=== PATIENT | female | born 1945 | race Caucasian/White ===

== ENCOUNTER → 2017-05-09 | Outpatient (CLI) | payer OTHER | LOC: FIMAGING 10:44 | PROVIDERS: ATTEND Family Medicine | DX: Z12.31 Encounter for screening mammogram for malignant neoplasm of breast (principal) | CPT/HCPCS: G0202 ==

== ENCOUNTER → 2017-07-25 | Outpatient (CLI) | payer OTHER ==
[~2017-07-25] MED LIST: IOPAMIDOL (ISOVUE-300) 100 ML BTL ONE
== END ==
LOC: CIMAGING 11:08
PROVIDERS: ATTEND Nurse Practitioner Family
DX: J98.6 Disorders of diaphragm (principal); R91.1 Solitary pulmonary nodule; K86.2 Cyst of pancreas; K57.90 Diverticulosis of intestine, part unspecified, without perforation or abscess without bleeding; I86.2 Pelvic varices
CPT/HCPCS: 71260; 74177; Q9967

== ENCOUNTER 2018-02-16 07:29 | Inpatient (IN) | payer OTHER ==
--- NOTE | 2018-02-16 08:00 | EDPHY ---
H & P Stated Complaint: abdominal cramps yesterday, bloody diarrhea this morning Time Seen by Provider: 02/16/18 07:59 HPI/ROS: Chief Complaint: Bloody diarrhea HPI: 72-year-old woman who is presenting with bloody diarrhea this morning. Patient states she has been having episodes of diarrhea for the last couple weeks. She was seen at urgent care and by her primary care physician who started her on some medication for this, she does not recall. She says that up until the end of last week her diarrhea had improved. Yesterday she had a lot of abdominal cramping and gas but did not passing stool. This morning she had 1 episode of loose stool with blood in it. It was not all blood. She is not having abdominal pain. She is having some nausea. No lightheadedness or fainting. No fevers or chills. She only had a single episode today. She denies any blood thinning medications. She does have a history of internal hemorrhoids. No rectal pain or blood in the toilet tissue before this morning recently. ROS: 10 systems were reviewed and were negative except those elements noted in the HPI. PMH: Tachy-cesar syndrome, on metoprolol per Cardiology Social History: No smoking, no alcohol, no recreational drug use Family History: non-contributory Physical Exam: Gen: Awake, Alert, No Distress HEENT: Nose: no rhinorrhea Eyes: PERRLA, EOMI Mouth: Dry mucosa Neck: Supple, no JVD Chest: nontender, lungs clear to auscultation Heart: S1, S2 normal, no murmur Abd: Soft, moderate generalized tenderness, no guarding Back: no CVA tenderness, no midline tenderness Ext: no edema, non-tender Skin: no rash Neuro: CN II-XII intact, Sensation grossly intact, Strength 5/5 in bilateral upper and lower extremities - Medical/Surgical History Hx Asthma: No Hx Chronic Respiratory Disease: No Hx Diabetes: No Hx Cardiac Disease: Yes Hx Renal Disease: No Hx Cirrhosis: No Hx Alcoholism: No Hx HIV/AIDS: No Hx Splenectomy or Spleen Trauma: No Other PMH: HTN - Social History Smoking Status: Never smoked Constitutional: Initial Vital Signs Temperature (C) 36.6 C 02/16/18 07:36 Heart Rate 122 H 02/16/18 07:36 Respiratory Rate 18 02/16/18 07:36 Blood Pressure 107/74 02/16/18 07:36 O2 Sat (%) 94 02/16/18 07:36 O2 Delivery Mode Room Air Allergies/Adverse Reactions: Penicillins Allergy (Verified 02/16/18 07:35) Sulfa (Sulfonamide Antibiotics) Allergy (Verified 02/16/18 07:35) thimerosal Allergy (Verified 02/16/18 07:35) Home Medications: Medication Instructions Recorded HCTZ (*) 02/16/18 Lipitor 02/16/18 Metoprolol Oral Susp (*) 02/16/18 Potassium Chloride 02/16/18 Medical Decision Making - Diagnostics Imaging Results: Imaging Impressions Abdomen CT 02/16/18 08:20 Impression: 1. Suspect mild generalized low-grade colitis, likely infectious or inflammatory. There is no atherosclerotic occlusive disease or mesenteric thrombosis observed. 2. 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 This should be imaged with contrast enhanced MRI, with monitoring through age 79, according to current ACR guidelines 3. Chronically elevated left hemidiaphragm similar to 07/25/2017 with stable distribution of noncalcified pulmonary nodules as above detailed. 4. Sequela of old granulomatous disease. 5. Pelvic venous congestion. 6. Uterine leiomyomata, with potential endometrial thickening and some mucosal fibroid versus tiny endometrial polypoid structure, similar to 07/25/2017. If there is further clinical concern, dedicated pelvic sonography could be considered. 6. Bilateral renal cortical cysts, similar to the previous exam. Findings were discussed with Edvin Villaseñor MD at 9:54, on 02/16/2018. A Follow-Up Required test result has been communicated via the [employer] Critical Result system on 02/16/2018 9:55, Message ID [id number]. ED Course/Re-evaluation: Potassium noted. I have ordered IV replacement. Awaiting CT scan results. Patient does have a leukocytosis but a normal H&H. CT scan results noted. Low-grade colitis. Patient is clinically dehydrated and hypokalemic. She has had some nausea not tolerating fluids. Plan will be for admission for hydration, potassium replacement. She will need follow-up as an outpatient for her pancreatic cyst and endometrial thickening. I have paged the hospitalist. - Data Points Laboratory Results: Laboratory Results 02/16/18 07:55 02/16/18 07:55 02/16/18 02/16/18 07:55 07:55 WBC 16.69 10^3/uL H 10^3/uL (3.80-9.50) RBC 5.63 10^6/uL H 10^6/uL (4.18-5.33) Hgb 16.3 g/dL g/dL (12.6-16.3) Hct 48.0 % H % (38.0-47.0) MCV 85.3 fL fL (81.5-99.8) MCH 29.0 pg pg (27.9-34.1) MCHC 34.0 g/dL g/dL (32.4-36.7) RDW 13.8 % % (11.5-15.2) Plt Count 226 10^3/uL 10^3/uL (150-400) MPV 11.4 fL fL (8.7-11.7) Neut % (Auto) Not Reported Lymph % (Auto) Not Reported [place] % (Auto) Not Reported Eos % (Auto) Not Reported Baso % (Auto) Not Reported Nucleat RBC Rel Count Not Reported Absolute Neuts (auto) Not Reported Absolute Lymphs (auto) Not Reported Absolute Monos (auto) Not Reported Absolute Eos (auto) Not Reported Absolute Basos (auto) Not Reported Absolute Nucleated RBC Not Reported Immature Gran % Not Reported Seg Neutrophils % 75.0 % % Band Neutrophils % 0.0 % % Lymphocytes % 5.0 % % Monocytes % 19.0 % % Eosinophils % 0.0 % % Basophils % 1.0 % % Metamyelocytes % 0.0 % % Myelocytes % 0.0 % % Promyelocytes % 0.0 % % Blast Cells % 0.0 % % Immature Gran # Not Reported Absolute Seg Neuts 12.52 10^/uL H 10^/uL (1.70-6.50) Absolute Band Neuts 0.00 10^3/uL 10^3/uL (0.00-0.70) Absolute Lymphocytes 0.83 10^3/uL L 10^3/uL (1.00-3.00) Absolute Monocytes 3.17 10^3/uL H 10^3/uL (0.30-0.80) Absolute Eosinophils 0.00 10^3/uL L 10^3/uL (0.03-0.40) Absolute Basophils 0.17 10^3/uL H 10^3/uL (0.02-0.10) Absolute Metamyelocyte 0.00 10^3/mL 10^3/mL (0.00-0.00) Absolute Myelocytes 0.00 10^3/mL 10^3/mL (0.00-0.00) Absolute Promyelocytes 0.00 10^3/uL 10^3/uL (0.00-0.00) Absolute Plasma Cells 0.00 10^3/uL 10^3/uL (0.00-0.00) Nucleated RBCs 0 /100 WBC /100 WBC (0-0) Absolute Blast Cells 0.00 10^3/uL 10^3/uL (0.00-0.00) Plasma Cells % 0.0 % % Platelet Estimate ADEQUATE (ADEQ) Microcytic Cells 1+ H Echinocytes 1+ H Sodium 134 mEq/L L mEq/L (135-145) Potassium 2.7 mEq/L L* mEq/L (3.3-5.0) Chloride 87 mEq/L L mEq/L (97-110) Carbon Dioxide 31 mEq/l mEq/l (22-31) Anion Gap 16 mEq/L mEq/L (8-16) BUN 12 mg/dL mg/dL (7-23) Creatinine 0.7 mg/dL mg/dL (0.6-1.0) Estimated GFR > 60 Glucose 132 mg/dL H mg/dL (70-100) Calcium 9.7 mg/dL mg/dL (8.5-10.4) Total Bilirubin 1.2 mg/dL mg/dL (0.1-1.4) AST 26 IU/L IU/L (14-46) ALT 38 IU/L IU/L (9-52) Alkaline Phosphatase 182 IU/L H IU/L (38-126) Total Protein 6.4 g/dL g/dL (6.3-8.2) Albumin 3.5 g/dL g/dL (3.5-5.0) Medications Given: Potassium Chloride (Potassium Cl 20 Meq (Premix)) 100 mls @ 50 mls/hr IV EDNOW ONE Stop: 02/16/18 10:40 Last Admin: 02/16/18 09:12 Dose: Not Given Discontinued Medications Sodium Chloride (Ns) 1,000 mls @ 0 mls/hr IV ONCE ONE; Wide Open PRN Reason: Protocol Stop: 02/16/18 08:20 Last Admin: 02/16/18 08:25 Dose: 1,000 mls Potassium Chloride (Potassium Cl 10 Meq (Premix)) 100 mls @ 100 mls/hr IV EDNOW ONE Stop: 02/16/18 10:06 Last Admin: 02/16/18 09:09 Dose: 100 mls Potassium Chloride (Potassium Cl 10 Meq (Premix)) 50 mls @ 50 mls/hr IV EDNOW ONE Stop: 02/16/18 10:06 Last Admin: 02/16/18 10:13 Dose: 50 mls Metoprolol Succinate (Toprol Xl) 25 mg PO EDNOW ONE Stop: 02/16/18 08:21 Last Admin: 02/16/18 08:31 Dose: 25 mg Departure - Departure Disposition: [facility] Acute Clinical Impression: Colitis, Dehydration, Hypokalemia Condition: Fair Referrals: Shanta Anderson MD [Primary Care Provider] - As per Instructions Stand Alone Forms: Statement of Treatment
[2018-02-16] MEDS ORDERED: NS 1,000 ML IV ONE (08:19)
[2018-02-16] MEDS ORDERED: METOPROLOL SUCCINATE XR 25 MG TAB PO ONE (08:20)
[2018-02-16 08:28] LABS: PLATELET COUNT 226 10^3/uL (150-400)
[2018-02-16] MEDS ORDERED: IOPAMIDOL (ISOVUE-300) 100 ML BTL ONE (08:41)
[2018-02-16] MEDS ORDERED: POTASSIUM Cl (KCl) 100 ML IV ONE ×2 (08:41→09:07)
[2018-02-16] MEDS ORDERED: POTASSIUM Cl (KCl) 10 MEQ/100 ML BAG IV ONE (08:48)
[2018-02-16] MEDS ORDERED: POTASSIUM Cl (KCl) 50 ML IV ONE (09:07)
[2018-02-16] MEDS ORDERED: PROTOCOL POTASSIUM 1 DOSE MISC PRN (11:08)
[2018-02-16] MEDS ORDERED: ACETAMINOPHEN 325 MG TAB PO PRN (11:42)
[2018-02-16] MEDS ORDERED: ONDANSETRON 4 MG/2 ML VIAL IVP PRN (11:42)
[2018-02-16] MEDS ORDERED: ONDANSETRON DISINTEGRATING 4 MG TAB PO PRN (11:42)
[2018-02-16] MEDS ORDERED: D5W 1/2 NS W/ 20 KCl/L 1,000 ML IV SCH (11:45)
--- NOTE | 2018-02-16 13:24 | ASMTCMCOM ---
CM Note CM Note Notes: Patient admitted via ED for c/o abdominal pain and bloody diarrhea. She reports a couple of weeks of loose stools. Plan of care TBD. Plan: TBD Date Signed: 02/16/2018 01:24 PM Electronically Signed By:Berta Rodriguez RN
--- NOTE | 2018-02-16 13:52 | GHP ---
DATE OF ADMISSION: 02/16/2018 HISTORY OF PRESENT ILLNESS: The patient is 72-year-old female with history of tachy-cesar syndrome. She has had diarrhea since January 31. She has had some nausea, really not much vomiting, but pers istent diarrhea. She has lost weight. She is spending a lot of her time in bed. She had a GI panel on the with no organism detected. She drinks city water, bottled water. She has not traveled. There are no new medications. No one around her has been sick. She lives at home with just her hus band. She has no pets. This morning, she saw some bright red blood in her stool and elected to come to the hospital. REVIEW OF SYSTEMS: Complete 10-point review of systems conducted, negative, except as noted in the H PI. PAST MEDICAL HISTORY: Tachy-cesar syndrome, pulmonary nodule. ALLERGIES: Penicillin, sulfa, thimerosal. MEDICATIONS: Metoprolol. SOCIAL HISTORY: She lives in [place]. No alcohol. No tobacco. FAMILY HISTORY: Reviewed and unremarkable. PHYSICAL EXAM: VITAL SIGNS: Temp 36.6, blood pressure 107/ , pulse 122 range has been 92 t o 150, breathing 18 times a minute, 94% on room air. GENERAL: In no acute distress, lying flat. HE ENT: Sclerae anicteric. Oropharynx clear. Mucous membranes moist. NECK: Supple. No lymphadenopa thy or JVD. LUNGS: Clear to auscultation bilaterally. HEART: S1, S2. Not tachycardic when I see her. ABDOMEN: Soft, nontender. No rebound or guarding. Bowel sounds are hypoactive, but present. LOWER EXTREMITIES: Without edema. Calves are nontender. SKIN: Without rash. NEUROLOGIC: Nonfoc al. LABORATORY/IMAGING: Sodium 134, potassium 2.7, chloride 87, bicarb 31, BUN 12, creatinine 0.7, gluco se 132. LFTs are normal other than a slightly elevated alkaline phosphatase. White count 16.7, mary ann tocrit 48, which is greater than her baseline, platelets 226,000. CT abdomen images reviewed, interpreted by me shows a largely jay colitis. No atherosclerotic occlus marybeth disease. She has a 1 x 3 x 1.1 x 3 cm cyst in the common bile duct in the pancreatic head. Stab le pulmonary nodules. Pelvic venous congestion, uterine leiomyomata, bilateral renal cortical cysts. I discussed the case with Dr. Jose Maria Villaseñor. Her EKG shows sinus tach at 145 with normal axis and intervals, and no ST or T-wave changes. ASSESSMENT/PLAN: A 72-year-old female with prolonged diarrhea and hypokalemia. 1. Diarrhea: Certainly, this is a long course of a viral or infectious colitis. I will repeat her gastrointestinal GI panel. She actually had two of them sent on the in the . The one on the was not run. The patient has a benign exam without evidence of acute intestinal ischemia. We will follow. If her gastrointestinal panel is negative, I think it is reasonable to discuss with [facility] about the possibility of a colonoscopy. 2. Hypokalemia: This is from losses in her stool. We will put her on a potassium protocol and pota ssium-containing intravenous fluid. 3. Uterine leiomyomata: Continue gynecologic followup. 4. Tachy-cesar: This is stable for her. We will continue her beta leah. 5. Prophylaxis: Sequential compression devices. DISPOSITION: Observation status. /[id number]/MODL
--- NOTE | 2018-02-16 14:21 | CPEKG ---
Test Reason : OPEN Blood Pressure : / mmHG Vent. Rate : 145 BPM Atrial Rate : 146 BPM P-R Int : 129 ms QRS Dur : 085 ms QT Int : 319 ms P-R-T Axes : 003 035 211 degrees QTc Int : 496 ms Sinus tachycardia Atrial premature complex Probable LVH with secondary repol abnrm Anterior Q waves, possibly due to LVH Confirmed by Edvin Villaseñor ([id number]) on 02/16/2018 2:20:47 PM Referred By: Confirmed By:Edvin Villaseñor
[2018-02-16] MEDS ORDERED: PEG 3350/NA SULF,BICARB,CL/KCL (GAVILYTE-G) 4000 ML BTL PO ONE (18:15)
[2018-02-16] MEDS ORDERED: POTASSIUM CL 10 MEQ TAB PO ONE (19:39)
[2018-02-16] MEDS ORDERED: POTASSIUM CL 20 MEQ/15 ML UDCUP PO ONE (20:00)
[2018-02-16] MEDS: METOPROLOL TARTRATE 25 MG TAB PO SCH (20:10)
[2018-02-16] MEDS ORDERED: POTASSIUM CL 20 MEQ/15 ML UDCUP ONE (20:12)
[2018-02-17 04:34] LABS: PLATELET COUNT 180 10^3/uL (150-400)
[2018-02-17] MEDS ORDERED: POTASSIUM CL 20 MEQ TAB PO ONE (05:45)
[2018-02-17] MEDS ORDERED: POTASSIUM CL 20 MEQ/15 ML UDCUP PO ONE ×3 (06:45→21:30)
[2018-02-17] MEDS: METOPROLOL TARTRATE 25 MG TAB PO SCH ×2 (08:08→20:43)
--- NOTE | 2018-02-17 09:11 | HOSPPROG ---
Hospitalist Progress Note Assessment/Plan: 72 yo F w refractory diarrhea diarrhea: micro neg X 2 blood yesterday imaging not suggestive of atherosclerosis, although not a dedicated CTA recently took ixekizumab for plaque psorias w subsequent thrush no rash/arthritis to suggest IBD colonoscopy today tachy cesar: tachy today continue BB hypokalemia: improving continue protocol proph: scd'd dispo: pending colonoscopy 3 Subjective: case d/w dr norris. s/p colon prep Objective: Vital Signs Temp Pulse Resp BP Pulse Ox 36.4 C 99 16 126/86 H 93 02/17/18 04:00 02/17/18 04:00 02/17/18 04:00 02/17/18 04:00 02/17/18 04:00 Microbiology 02/16/18 13:15 Gastrointestinal Tract Panel (PCR) - Final Stool No Organism Detected Laboratory Results 02/17/18 03:04 02/17/18 03:04 02/16/18 02/17/18 02/18/18 05:59 05:59 05:59 Intake Total 5246 100 Balance 5246 100 - Physical Exam Constitutional: no apparent distress, appears nourished Eyes: PERRL, anicteric sclera Ears, Nose, Mouth, Throat: moist mucous membranes, hearing normal Cardiovascular: regular rate and rhythym, no murmur, rub, or gallop Respiratory: no respiratory distress, no rales or rhonchi Gastrointestinal: normoactive bowel sounds, soft, non-tender abdomen, No guarding, No rebound Genitourinary: no bladder fullness, No patterson in urethra Skin: warm, normal color Musculoskeletal: full muscle strength, no muscle tenderness Neurologic: AAOx3 Psychiatric: interacting appropriately ICD10 Worksheet Patient Problems: Problems Problem Status Onset Colitis Acute Dehydration Acute Hypokalemia Acute
[2018-02-17] MEDS ORDERED: LR 1,000 ML IV ONE (10:11)
--- NOTE | 2018-02-17 11:07 | PDANEPAE ---
ANE Past Medical History - Cardiovascular History Hx Hypertension: Yes - Pulmonary History Hx Oxygen in Use at Home: No Hx Sleep Apnea: No Sleep Apnea Screening Result - Last Documented: Negative - Endocrine History Hx Diabetes: No - Chronic Pain History Chronic Pain: No ANE Review of Systems Review of Systems: ANE Patient History - Allergies Allergies/Adverse Reactions: Penicillins Allergy (Verified 02/16/18 10:45) Rash Sulfa (Sulfonamide Antibiotics) Allergy (Verified 02/16/18 10:45) Rash thimerosal Allergy (Verified 02/16/18 10:45) Rash - Home Medications Home Medications: Metoprolol Tartrate [Lopressor 25 mg (*)] 25 mg PO BID 02/16/18 [Last Taken ] - NPO status NPO Since - Liquids (Date): 02/17/18 NPO Since - Liquids (Time): 00:00 NPO Since - Solids (Date): 02/17/18 NPO Since - Solids (Time): 00:00 - Anes Hx Anes Hx: no prior problems - Smoking Hx Smoking Status: Never smoked ANE Labs/Vital Signs - Labs Result Diagrams: 02/17/18 03:04 02/17/18 03:04 - Vital Signs Blood Pressure: 124/86 Heart Rate: 138 Respiratory Rate: 20 O2 Sat (%): 92 Height: 167.64 cm Weight: 80.9 kg ANE Physical Exam - Airway Mallampati Score: Class 2 - ASA Status ASA Status: II ANE Anesthesia Plan Total IV Anesthesia: Yes
[2018-02-17] MEDS ORDERED: PROPOFOL/EMULSION 500 MG/50 ML BOTTLE IV ONE (11:40)
[2018-02-17] MEDS ORDERED: NALOXONE HCL 0.4 MG/ML INJ IVP PRN (12:06)
[2018-02-17] MEDS ORDERED: ONDANSETRON 4 MG/2 ML VIAL IVP PRN (12:06)
[2018-02-17] MEDS ORDERED: fentaNYL 100 MCG/2 ML INJ IVP PRN (12:06)
[2018-02-17] MEDS ORDERED: LR 500 ML IV PRN (12:06)
--- NOTE | 2018-02-17 12:07 | POSTANESTH ---
Post Anesthetic Evaluation Cardiovascular Status: Similar to Pre-Op Cond Respiratory Status: Normal, Stable Level of Consciousness/Mental Status: Can Participate in Eval Pain Control: Adequate, Prn Tx Ordered Nausea/Vomiting Control: Adequate, Prn Tx Ordered Complications Possibly Related to Anesthesia: None Noted
--- NOTE | 2018-02-17 12:15 | GIREPORT ---
[facility] - Endoscopy Department Patient Name: Lori Macias Procedure Date: 02/17/2018 10:56 AM Patient Type: Inpatient Attending MD/ ER Physician: Dominic Garcia MD Procedure: Colonoscopy Indications: Clinically significant diarrhea of unexplained origin, Hematochezia, Abnormal CT of the GI tract Providers: Dominic Garcia MD Medicines: Propofol per Anesthesia Complications: No immediate complications. Description of Procedure: After obtaining informed consent, the scope was passed under direct vis ion. Throughout the procedure, the patient's blood pressure, pulse, and oxyg en saturations were monitored continuously. The Colonoscope with irrigatio n channel was introduced through the anus and advanced to the cecum, identified by appendiceal orifice and ileocecal valve. The colonoscopy was performed without difficulty. The patient tolerated the procedure well. The quality of the bowel preparation was good. The appendiceal orifice and the rectum were photographed. Findings: A diffuse area of severely congested, erythematous and ulcerated mucosa was found in the entire colon. Biopsies were taken with a cold forceps for histology. Random right and left colon biopsies obtained. Estimated Blood Loss: Estimated blood loss: none. Post Op Diagnosis: - Congested, erythematous and ulcerated mucosa in the entire examined c olon. Biopsied. - Pancolitis. C/W IBD. Inflammation was found. This was severe. -Taltz has been associated with causing IBD (UC/Crohns) Recommendation: - Low fiber diet. - Await pathology results. - Pending path and clincial course would recommend IV Solumdrol 40 q 12 hours. Also oral mesalamine, Lialda 1. gram tabs, 4 tabs Daily. - Discontinue Taltz - Thank you for allowing me to participate in the care of your patient. Attending Participation: I personally performed the entire procedure. Dominic Garcia MD Dominic Garcia MD 02/17/2018 12:14:36 PM This report has been signed electronicallyStkendell Garcia MD Number of Addenda: 0 Note Initiated On: 02/17/2018 10:56 AM Total Procedure Duration Time 0 hours 9 minutes 35 seconds [email or web address]
--- NOTE | 2018-02-17 12:36 | GCON ---
REFERRING PHYSICIAN: Austin Hutton MD CHIEF COMPLAINT: Colitis. HISTORY OF PRESENT ILLNESS: This is a very pleasant, 72-year-old woman I was asked to see in consult ation by Dr. Hutton for symptoms of diarrhea and hematochezia with colitis on CT scan. The patient h as had diarrhea symptoms since January. She had some associated nausea without vomiting, persistent d iarrhea with some weight loss. She had stool studies for enteric pathogens, which were negative. Ramos urbina does have a history of psoriasis and has been on biologics for her psoriasis, Taltz. This did caus e an episode of thrush, for which she took oral antifungal medications. She presented to the [facility] with diarrhea and bright red blood per rectum. She had a CT scan that showed pancolitis. She has no prior history of inflammatory bowel disease. She has had previous colonoscopy about 10 years ago for routine colorectal screening. No family history of colon cancer or colon polyps. PAST MEDICAL HISTORY: Remarkable for tachy-cesar syndrome and a pulmonary nodule, history of psorias is. ALLERGIES: Penicillin, sulfa, thimerosal. MEDICATIONS: Metoprolol and Taltz. SOCIAL HISTORY: Lives in [place]. Nonsmoker, nondrinker, FAMILY HISTORY: Negative, as it pertains to chief complaint. REVIEW OF SYSTEMS: Negative for 10 systems, other than mentioned in History of Present Illness. PHYSICAL EXAM: VITAL SIGNS: 124/86, heart rate of 138, respiratory rate 20, 92% sat. GENERAL: A ve ry pleasant woman in no acute distress. HEENT: Normocephalic, atraumatic. EOMI. Neck is supple. No cervical adenopathy. Mucous membranes moist. LUNGS: Clear to auscultation. CARDIAC: Normal S1 , S2 without murmur. ABDOMEN: Benign, soft, nontender. No hepatosplenomegaly. EXTREMITIES: Witho ut clubbing, cyanosis, edema. NEURO: Nonfocal. SKIN: Warm, dry, intact. PSYCH: Alert and orient ated x3 with normal affect. LABORATORY DATA: White count of 10.82, hemoglobin 13.8, hematocrit 41.1, platelets of 180,000. Seru m chemistry is 136, potassium 3.0, chloride 95, BUN of 6, creatinine 0.6. CT scan: Episode of pancolitis. Stable-appearing 1.3 x 1.0 x 1.3 cyst off the caudal margin of the pancreatic head. Radiology recommended contrast-enhanced MRI and followup. IMPRESSION: A 72-year-old woman with psoriasis on biologics, Taltz (ixekizumab). Taltz has been ass ociated with causing inflammatory bowel disease, Crohn's, ulcerative colitis, or exacerbating known u lcerative colitis or Crohn disease. RECOMMENDATIONS: IV hydration. Clear liquids. Prep for colonoscopy. Proceed with diagnostic colon oscopy. We will follow with you. /[id number]/MODL
[2018-02-17] MEDS: PANTOPRAZOLE SODIUM 40 MG VIAL IVP SCH ×2 (15:59→20:53)
[2018-02-17] MEDS: methylPREDNISolone SOD SUCC 40 MG/ML VIAL IVP SCH ×2 (15:59→20:53)
[2018-02-17] MEDS ORDERED: POTASSIUM CL 10 MEQ TAB PO ONE (21:03)
[2018-02-18] MEDS: methylPREDNISolone SOD SUCC 40 MG/ML VIAL IVP SCH ×2 (03:36→08:54)
[2018-02-18 08:05] VITALS: BP 125/87
[2018-02-18] MEDS ORDERED: POTASSIUM CL 10 MEQ TAB PO ONE (08:51)
[2018-02-18] MEDS: PANTOPRAZOLE SODIUM 40 MG VIAL IVP SCH (08:57)
[2018-02-18] MEDS ORDERED: POTASSIUM CL 20 MEQ/15 ML UDCUP PO ONE (09:00)
[2018-02-18] MEDS: METOPROLOL TARTRATE 25 MG TAB PO SCH (09:04)
--- NOTE | 2018-02-18 10:07 | HOSPPROG ---
Hospitalist Progress Note Assessment/Plan: 72 yo F w refractory diarrhea diarrhea: micro neg X 2 blood yesterday imaging not suggestive of atherosclerosis, although not a dedicated CTA recently took ixekizumab for plaque psorias w subsequent thrush no rash/arthritis to suggest IBD colonoscopy revealed colitis ixekizumab a/w colitis dc this two weeks pred tachy cesar: tachy today continue BB hypokalemia: improving continue protocol proph: scd'd dispo: home today; > 30 minutes Subjective: feels better. eating Objective: Vital Signs Temp Pulse Resp BP Pulse Ox 36.7 C 133 H 18 125/87 H 92 02/18/18 08:00 02/18/18 09:04 02/18/18 08:00 02/18/18 08:00 02/18/18 08:00 Laboratory Results 02/17/18 03:04 02/18/18 03:40 02/17/18 02/18/18 02/19/18 05:59 05:59 05:59 Intake Total 5246 675 Output Total 0 Balance 5246 675 - Physical Exam Constitutional: no apparent distress, appears nourished Eyes: PERRL, anicteric sclera Ears, Nose, Mouth, Throat: moist mucous membranes, hearing normal Cardiovascular: regular rate and rhythym, no murmur, rub, or gallop Respiratory: no respiratory distress, no rales or rhonchi Gastrointestinal: normoactive bowel sounds, soft, non-tender abdomen Genitourinary: no bladder fullness, No patterson in urethra Skin: warm, normal color ICD10 Worksheet Patient Problems: Problems Problem Status Onset Colitis Acute Dehydration Acute Hypokalemia Acute
--- NOTE | 2018-02-18 10:26 | GDS ---
DISCHARGE DIAGNOSES: 1. Hyperkalemia. 2. Ixekizumab-induced colitis. 3. Bright red blood per rectum. Please see admission history and physical by Dr. Austin Hutton. The patient presented with a couple weeks of diarrhea. She had already had negative micro x1 and was negative again. She received colo noscopy that showed pretty significant colitis. She was started on Solu-Medrol with improvement of h er symptoms. She started taking ixekizumab aka Austin for plaque psoriasis. This has been associated with the worsening of inflammatory bowel disease or de javy formation of that. This has been discon tinued. She was sent out on 2 weeks of prednisone with some outpatient followup for biopsy results a nd prednisone taper. Gastroenterology had coordinated the care with them. /[id number]/MODL
--- NOTE | 2018-02-18 10:45 | ASMTLACE ---
LACE Length of stay for Answers: 2 days current admission Acuity / Level of Answers: Yes Care: Did the patient have an inpatient admission? Comorbidities - select Answers: Other Notes: HTN all that apply # of Emergency department Answers: 1-2 visits in the last 6 months Score: 7 Date Signed: 02/18/2018 10:44 AM Electronically Signed By:Danielle Campuzano
--- NOTE | 2018-02-18 10:47 | ASMTDCNOTE ---
Case Management Discharge Discharge Order Complete? Answers: Yes Patient to Obtain Answers: via Family Medications Transportation Arranged Answers: Family/Friends Transport will Pick (Date 02/18/2018 12:00 AM & Time) Family Notified Answers: Yes Notes: by pt. Discharge Comments Notes: Spoke with pt in the room and RN. Pt admitted for colitis, dehydration and hypokalemia. Pt lives independently with her and plans to discharge home independently. RN and pt comfortable with this plan. No further CM needs noted. CM available for any changes. Date Signed: 02/18/2018 10:46 AM Electronically Signed By:Danielle Campuzano
--- NOTE | 2018-02-18 11:20 | PDMN ---
Medical Necessity Medical necessity: MCG: M182 GIB-lower bright red blood per rectum- colonoscopy pend. pt with ongoing tachycardia, hypokalemia, ongoing need for IV solumedrol, IV protonix- status changed to INPT 01/17/18 for further eval, monitoring, and tx of colitis, > 2 MN.
== END 2018-02-18 11:20 | disposition home or self-care (01) | DRG 395 ==
LOC: F2W 12:40 → OBSVTOIN 02-17 16:00
PROVIDERS: ADMIT Internal Medicine; ATTEND Internal Medicine
DX: K52.1 Toxic gastroenteritis and colitis (principal); T45.1X5A Adverse effect of antineoplastic and immunosuppressive drugs, initial encounter; E87.6 Hypokalemia; L40.9 Psoriasis, unspecified; I49.5 Sick sinus syndrome; I10 Essential (primary) hypertension; D25.9 Leiomyoma of uterus, unspecified
CPT/HCPCS: 96365; 97161-GP; G0378; G8978-GP-CI; G8979-GP-CI; G8980-GP-CI; J2704; J2920; J3480; Q9967

== ENCOUNTER 2018-03-04 14:46 | Inpatient (IN) | payer OTHER ==
--- NOTE | 2018-03-04 15:29 | EDPHY ---
H & P Stated Complaint: sent from [facility] for hypokalemia, diarrhea, fatigue no appetite Time Seen by Provider: 03/04/18 15:29 HPI/ROS: CHIEF COMPLAINT: Weakness, recurrent hypokalemia, ongoing diarrhea HISTORY OF PRESENT ILLNESS: The patient is referred to the emergency department from the GI clinic. The patient was recently diagnosed with pain colitis from presumed Ixekizumab. She was hospitalized for dehydration and hypokalemia at the end of February. The patient was discharged on a prednisone taper. She is currently taking 30 mg a day. Approximately 1 week ago she was started on 4 Aprezo tablets on a daily basis. The patient reports she has continued to have ongoing watery diarrhea which does not seem to be improved with medication she is currently taking. She denies any fever, cough or congestion. She complains of generalized fatigue. She denies additional acute complaints. REVIEW OF SYSTEMS: A comprehensive 10 point review of systems is otherwise negative aside from elements mentioned in the history of present illness. Source: Patient - Medical/Surgical History Hx Asthma: No Hx Chronic Respiratory Disease: No Hx Diabetes: No Hx Cardiac Disease: No Hx Renal Disease: No Hx Cirrhosis: No Hx Alcoholism: No Hx HIV/AIDS: No Hx Splenectomy or Spleen Trauma: No Other PMH: HTN, colitis - Social History Smoking Status: Never smoked - Physical Exam Exam: General Appearance: Elderly female, no acute distress, slightly pallorous Eyes: Pupils equal and round no pallor or injection ENT, Mouth: Mucous membranes moist Respiratory: There are no retractions, lungs are clear to auscultation Cardiovascular: Regular rate and rhythm Gastrointestinal: Abdomen is soft and nontender, no masses, bowel sounds normal Neurological: A&O, normal motor function, normal sensory exam Skin: Warm and dry, no rashes Musculoskeletal: Neck is supple nontender Extremities: symmetrical, full range of motion Constitutional: Initial Vital Signs Temperature (C) 36.7 C 03/04/18 14:50 Heart Rate 81 03/04/18 14:50 Respiratory Rate 16 03/04/18 14:50 Blood Pressure 119/67 03/04/18 14:50 O2 Sat (%) 94 03/04/18 14:50 O2 Delivery Mode Room Air Allergies/Adverse Reactions: Penicillins Allergy (Verified 02/16/18 10:45) Rash Sulfa (Sulfonamide Antibiotics) Allergy (Verified 02/16/18 10:45) Rash thimerosal Allergy (Verified 02/16/18 10:45) Rash Home Medications: Medication Instructions Recorded Metoprolol ER-Hctz 25-12.5 mg 03/04/18 Zofran Odt 4 mg (*) 03/04/18 predniSONE 03/04/18 Medical Decision Making ED Course/Re-evaluation: I reviewed the patient's past medical records including her history and physical and discharge summary from February. I reviewed the patient's outpatient labs which demonstrate hypokalemia. The patient had an IV established. She was placed on a cardiac care unit nurse. EKG demonstrates no evidence of an arrhythmia. The patient did receive IV potassium replacement in the emergency department. She will require admission to the hospital in the setting for dehydration and metabolic derangement. Consultation is made with Dr. Anabelle Goldsmith from the hospitalist service who will admit the patient. The patient will be seen in consultation by Gastroenterology of the [facility]. Differential Diagnosis: Differential diagnosis considered includes colitis, dehydration, metabolic abnormality, renal failure - Data Points Laboratory Results: Laboratory Results 03/04/18 15:25 03/04/18 15:25 03/04/18 03/04/18 15:25 15:25 WBC 16.57 10^3/uL H 10^3/uL (3.80-9.50) RBC 4.66 10^6/uL 10^6/uL (4.18-5.33) Hgb 13.4 g/dL g/dL (12.6-16.3) Hct 39.3 % % (38.0-47.0) MCV 84.3 fL fL (81.5-99.8) MCH 28.8 pg pg (27.9-34.1) MCHC 34.1 g/dL g/dL (32.4-36.7) RDW 14.0 % % (11.5-15.2) Plt Count 188 10^3/uL 10^3/uL (150-400) MPV 10.1 fL fL (8.7-11.7) Neut % (Auto) Pending Lymph % (Auto) Pending [place] % (Auto) Pending Eos % (Auto) Pending Baso % (Auto) Pending Nucleat RBC Rel Count Pending Absolute Neuts (auto) Pending Absolute Lymphs (auto) Pending Absolute Monos (auto) Pending Absolute Eos (auto) Pending Absolute Basos (auto) Pending Absolute Nucleated RBC Pending Immature Gran % Pending Immature Gran # Pending Platelet Estimate Pending Sodium 132 mEq/L L mEq/L (135-145) Potassium 2.4 mEq/L L* mEq/L (3.3-5.0) Chloride 92 mEq/L L mEq/L (97-110) Carbon Dioxide 31 mEq/l mEq/l (22-31) Anion Gap 9 mEq/L mEq/L (8-16) BUN 11 mg/dL mg/dL (7-23) Creatinine 0.6 mg/dL mg/dL (0.6-1.0) Estimated GFR > 60 Glucose 135 mg/dL H mg/dL (70-100) Calcium 9.3 mg/dL mg/dL (8.5-10.4) Medications Given: Potassium Chloride (Potassium Cl 20 Meq (Premix)) 100 mls @ 50 mls/hr IV EDNOW ONE Stop: 03/04/18 17:39 Last Admin: 03/04/18 15:50 Dose: 100 mls Departure - Departure Disposition: [facility] In[facility] Acute Clinical Impression: Dehydration, Hypokalemia, Colitis Condition: Fair
[2018-03-04] MEDS ORDERED: POTASSIUM Cl (KCl) 100 ML IV ONE (15:40)
[2018-03-04 15:46] LABS: PLATELET COUNT 188 10^3/uL (150-400)
[2018-03-04] MEDS ORDERED: POTASSIUM Cl (KCl) 10 MEQ/100 ML BAG IV ONE (15:48)
--- NOTE | 2018-03-04 16:05 | CPEKG ---
Test Reason : OPEN Blood Pressure : / mmHG Vent. Rate : 088 BPM Atrial Rate : 087 BPM P-R Int : 140 ms QRS Dur : 086 ms QT Int : 370 ms P-R-T Axes : 015 042 050 degrees QTc Int : 448 ms Sinus rhythm Confirmed by Panda Roth ([id number]) on 03/04/2018 4:04:25 PM Referred By: Confirmed By:Panda Roth
[2018-03-04] MEDS ORDERED: ACETAMINOPHEN 325 MG TAB PO PRN (18:21)
[2018-03-04] MEDS ORDERED: PROMETHAZINE HCL 25 MG/ML INJ IVP PRN (18:21)
[2018-03-04] MEDS ORDERED: ONDANSETRON 4 MG/2 ML VIAL IVP PRN (18:21)
[2018-03-04] MEDS ORDERED: PROTOCOL POTASSIUM 1 DOSE MISC PRN (18:21)
[2018-03-04] MEDS ORDERED: NS 1,000 ML IV SCH (18:30)
--- NOTE | 2018-03-04 19:31 | GHP ---
DATE OF ADMISSION: 03/04/2018 CHIEF COMPLAINT: Diarrhea. HISTORY: Lori is a 73-year-old female just discharged from [facility] on February 18 when she was diagnosed with colitis as a side effect of her immunotherapy she was taking for plaqu e psoriasis. She was started on IV steroids in the hospital and transitioned to oral steroids at dis charge. When she left the hospital, she was doing very well. She has been very slowly tapering her steroids down from 40 mg daily at hospital discharge, down to 25 mg p.o. daily. She says she did wel l for approximately 10 days, at which point, the diarrhea has come back very severely. She has recur rence of diarrhea, but it is no longer bloody as it was when she was initially diagnosed. She has be en seen at [facility], and they sent her back to the emergency room for admission, especially given electrolyte abnormalities. The patient has gotten so weak that she could not stand. Last ay, she called 911 because she could not get off the floor, and they got her back upright, but she di d not come to the emergency room. She has had nausea and decreased p.o. intake. PAST MEDICAL HISTORY: 1. Plaque psoriasis. 2. Tachy-cesar syndrome. 3. 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 MEDICATIONS: Please see computerized record for full detailed list. ALLERGIES: Penicillin and sulfa. SOCIAL HISTORY: No smoking. No alcohol. She lives with her . REVIEW OF SYSTEMS: Complete review of systems obtained. Review of systems negative regarding consti tutional, HEENT, GI, pulmonary, cardiovascular, , hematologic, musculoskeletal, endocrine, psych, e xcept for positives and negatives noted as in HPI. FAMILY HISTORY: Reviewed and noncontributory to presenting complaint. PHYSICAL EXAMINATION: GENERAL: Well-developed, well-nourished female, in no distress. VITAL SIGNS: Temperature is 36.7, pulse 81, blood pressure 119/67, sat 94% on room air. HEENT: Normal conjunct ivae. Pupils equal and reactive to light. ENT: Normal ears and nose. Hearing intact. Normal lips and teeth. Oropharynx moist. NECK: Trachea midline. No thyromegaly. CHEST: Normal respiratory effort. LUNGS: Clear to auscultation bilaterally. CARDIOVASCULAR: Regular rate and rhythm. No mu rmur. No lower extremity edema. ABDOMEN: Soft, nontender. No hepatosplenomegaly. SKIN: Warm, dr y, intact. No rash. MUSCULOSKELETAL: No cyanosis or clubbing. Strength 5/5, upper and lower extre mities. NEUROLOGIC: Cranial nerves intact. Normal sensation to light touch. PSYCH: Alert and julio c ented x3. Normal mood and affect. Normal judgment and insight. Normal memory. LABORATORY DATA: White count 16.57, hematocrit 39.3, platelets 188. Sodium 132, potassium 2.4, chlo ride 92, bicarb 31, BUN 11, creatinine 0.6, glucose 135. IMAGING PROCEDURE: EKG viewed by me. My personal interpretation is normal sinus rhythm. No ischemi c ST changes. Abdominal ultrasound done earlier today as an outpatient was negative. This case was personally discussed with Dr. Romero. Gastroenterology will see her in the hospital as well. IV stero ids were discussed. ASSESSMENT/PLAN: 1. Colitis secondary to immunotherapy. She has had recurrence of symptoms with her steroid taper. We will put her back on IV Solu-Medrol. Will check a gastrointestinal PCR panel, rule out new infect ion. 2. Plaque psoriasis. Immunotherapy has been discontinued. 3. Critical hypokalemia. This will be repleted. We will watch her on telemetry. COR STATUS: Full. ADMISSION STATUS: 1. Will admit to observation, reevaluate tomorrow. 2. DVT prophylaxis: Given her recent GI bleed and bloody colitis, will hold off on pharmacologic pr ophylaxis. Use SCDs only. /[id number]/MODL
[2018-03-04] MEDS ORDERED: POTASSIUM CL 20 MEQ TAB PO ONE (20:16)
[2018-03-04] MEDS: METOPROLOL TARTRATE 25 MG TAB PO SCH (21:07)
[2018-03-04] MEDS: ATORVASTATIN CALCIUM 10 MG TAB PO SCH (21:08)
[2018-03-04] MEDS: methylPREDNISolone SOD SUCC 125 MG/2 ML VIAL IVP SCH (21:09)
[2018-03-04] MEDS ORDERED: POTASSIUM CL 20 MEQ/15 ML UDCUP PO ONE (21:30)
[2018-03-05] MEDS: MESALAMINE 0.375 GM PO SCH ×5 (00:30→19:52)
[2018-03-05] MEDS: methylPREDNISolone SOD SUCC 125 MG/2 ML VIAL IVP SCH ×4 (00:30→19:27)
[2018-03-05 04:11] LABS: PLATELET COUNT 179 10^3/uL (150-400)
[2018-03-05] MEDS ORDERED: POTASSIUM CL 10 MEQ TAB PO ONE ×2 (07:28→19:23)
[2018-03-05] MEDS: ONDANSETRON DISINTEGRATING 4 MG TAB PO PRN ×3 (08:57→21:14)
[2018-03-05] MEDS: METOPROLOL TARTRATE 25 MG TAB PO SCH ×2 (08:57→19:49)
[2018-03-05] MEDS ORDERED: POTASSIUM CL 20 MEQ/15 ML UDCUP PO ONE ×2 (09:30→21:00)
[2018-03-05] MEDS ORDERED: MAGNESIUM SULF 1 GM/DEXTROSE 100 ML IV ONE (09:43)
[2018-03-05] MEDS: POTASSIUM Cl (KCl) 40 MEQ in NS 1,000 ML IV SCH (11:35)
--- NOTE | 2018-03-05 12:03 | ASMTCMCOM ---
CM Note CM Note Notes: Pts case discussed in tx rounds. Pt is a 73 y/o female admitted for hypokalemia and dehydration. Therapies have been ordered and awaiting recommendations. Needs are TBD at this time. CM to follow. Plan: TBD Date Signed: 03/05/2018 12:02 PM Electronically Signed By:JAMES Carrera
--- NOTE | 2018-03-05 13:30 | GCON ---
DATE OF CONSULTATION: 03/05/2018 REFERRING PHYSICIAN: Anabelle Goldsmith MD REASON FOR CONSULTATION: Ulcerative colitis exacerbation with diarrhea. CHIEF COMPLAINT: Weakness/diarrhea. HISTORY OF PRESENT ILLNESS: The patient is a 73-year-old female who was diagnosed on 02/17/2018, with jay colitis on colonoscopy. Biopsies suggested this was ulcerative colitis and it was thought that this may be incited by her use of Taltz. The patient was started on IV steroids with a taper with improvement of her symptoms. 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 Her prednisone was tapered rapidly and started to have an increase of symptoms of diarrhea, as well as weakness. She is going to the bathroom approximately 3 to 4 diarrheal bowel movements a day with minimal blood. She also had increasing weakness where she was not able to ambulate or even get off the floor. On blood work, she was noted to have a low potassium of 2.4 and was instructed to come to the hospital for further evaluation. She denies any chest pain or shortness of breath. She does have some complaints of having a poor appetite, as well as nausea. She was on prednisone, as well as a 5-ASA compound. I am being asked by Dr. Goldsmith to evaluate the patient in consultation regarding a flare of her ulcerative colitis. PAST MEDICAL HISTORY: 1. Plaque psoriasis. 2. Tachy-cesar syndrome. 3. Ulcerative colitis. 4. Hypertension. PAST SURGICAL HISTORY: Cataracts. MEDICATIONS: Imodium, Taltz, prednisone, Apriso, metoprolol. ALLERGIES: Penicillin, sulfa. SOCIAL HISTORY: No tobacco or alcohol use. FAMILY HISTORY: No history of inflammatory bowel disease. REVIEW OF SYSTEMS: A 14-point comprehensive review of systems was asked. Pertinent positives and negatives per HPI. PHYSICAL EXAM: VITAL SIGNS: Blood pressure 110/68, pulse 80, O2 saturation 92 % on room air, temperature 36.7. GENERAL: Awake, alert, and oriented x3 in no distress. HEENT: Anicteric sclerae. Moist mucosa. NECK: No JVD. CARDIOVASCULAR: Regular rate and rhythm. Positive S1, S2. No murmurs. LUNGS : Clear to auscultation bilaterally. No wheeze, rales, or rhonchi. ABDOMEN: Soft, nontender, nondistended. Positive bowel sounds. No guarding or rebound. EXTREMITIES: No cyanosis, clubbing, or edema. NEUROLOGIC: 2 through 12 intact. PSYCH: Normal affect. SKIN: No rash. MUSCULOSKELETAL: No obvious joint effusions. LABORATORY DATA: WBC 12.72, hemoglobin 12.6, platelets 179. ESR 51. Sodium 135, potassium 3.0, chloride 95, bicarb 31, BUN 9, creatinine 0.6. C-reactive protein 193.1. AST 16, ALT 31. ASSESSMENT/PLAN: 1. Ulcerative colitis- exacerbation. On a rapid prednisone taper, as well as 5 -ASA as an outpatient. Unsure whether she has steroid myopathy. At this time, I suspect that she has a fairly significant flare of her symptoms with increasing weakness. Unsure if the weakness is due to myopathy versus a flare of her disease. Would recommend to continue intravenous steroids for approximately 72 hours. We will consider discharging on Entocort? Would recommend to check stool studies and monitor electrolytes. 2. Psoriasis. Thank you very much for this consultation. /[id number]/MODL SHAQ
--- NOTE | 2018-03-05 18:12 | HOSPPROG ---
Hospitalist Progress Note Assessment/Plan: Assessment: 73 yo F p/w acute ulcerative colitis flare and acute weakness 2/2 severe hypokalemia Plan: 1. Acute ulcerative colitis flare. New problem, further workup indicated. Evidenced by abdominal discomfort, nausea, frequent watery bowel movements, CRP 193 -appreciate Gastroenterology consultation, recommend scheduled IV steroids and monitor bowel output -ongoing IV fluids for GI losses -supportive care with antiemetics and pain medications, including antispasmodics -send GI PCR panel to rule out concomitant C diff 2. Paresis. Acute, unclear whether this is steroid induced myopathy versus severe hypokalemia -replete hypokalemia aggressively and gauge whether strength significantly improved -if this is steroid induced myopathy, this will be complicated by the fact the patient requires ongoing steroids to control or ulcerative colitis -engage with physical and occupational therapy determine discharge needs -EKG demonstrating normal sinus rhythm with T-wave inversions in lead V3 and V4 , personally interpreted 3.Hyponatremia. Acute, most likely secondary to hypovolemia in the setting of GI volume losses, continue normal saline with supplemental potassium and repeat serum sodium level in a.m. 4.Metabolic alkalosis. Secondary to contraction from hypovolemia, continue fluids and repeat in a.m. Diet. Regular Prophylaxis. High risk, Lovenox for Code. Full Disposition. Anticipated discharge uncertain this time, upgraded to inpatient admission status reasonable medical necessity including acute ulcerative colitis flare requiring IV steroids and ongoing IV fluids for ongoing GI losses. Subjective: Ongoing liquid bowel movements, abdominal discomfort, nausea Objective: Vital Signs Temp Pulse Resp BP Pulse Ox 36.8 C 116 H 16 169/86 H 94 03/05/18 15:01 03/05/18 15:01 03/05/18 15:01 03/05/18 15:01 03/05/18 15:01 Microbiology 03/05/18 11:15 Gastrointestinal Tract Panel (PCR) - Final Stool No Organism Detected Laboratory Results 03/05/18 03:47 03/05/18 03:47 03/04/18 03/05/18 03/06/18 05:59 05:59 05:59 Intake Total 1250 300 Output Total 350 600 Balance 900 -300 - Physical Exam Constitutional: no apparent distress, appears nourished, uncomfortable, No not in pain (Mild) Cardiovascular: regular rate and rhythym, no murmur, rub, or gallop, No edema Respiratory: no respiratory distress, no rales or rhonchi, clear to auscultation Gastrointestinal: normoactive bowel sounds, tenderness (Mild in mid abdomen), No guarding, No distension Neurologic: AAOx3 Psychiatric: interacting appropriately, not anxious, not encephalopathic, thought process linear ICD10 Worksheet Patient Problems: Problems Problem Status Onset Colitis Acute Dehydration Acute Hypokalemia Acute
[2018-03-05] MEDS: ATORVASTATIN CALCIUM 10 MG TAB PO SCH (19:49)
--- NOTE | 2018-03-05 21:02 | PDMN ---
Medical Necessity Medical necessity: Pt meets inpt criteria per MD order and [facility], Inflammatory Bowel Disease. 73 y/o w/ongoing abd discomfort, nausea, freq watery stools, CRP 193, admitted w/hypokalemia(potassium 2.4 on admission)w/ paresis and dehydration found to have acute ulcerative colitis flare, new problem, further workup indicated, GI consult, ongoing IV steroids and IVF for ongoing GI losses, antiemetics, pain meds and antispasmodics, PT/OT. Anticiapte> 2MN for further med nec eval/treatment.
[2018-03-06] MEDS: methylPREDNISolone SOD SUCC 125 MG/2 ML VIAL IVP SCH ×4 (00:53→17:35)
[2018-03-06] MEDS: ONDANSETRON DISINTEGRATING 4 MG TAB PO PRN ×5 (01:41→21:04)
[2018-03-06] MEDS: METOPROLOL TARTRATE 25 MG TAB PO SCH ×2 (07:38→21:04)
[2018-03-06] MEDS: MESALAMINE 0.375 GM PO SCH ×4 (07:39→21:03)
[2018-03-06] MEDS ORDERED: POTASSIUM CL 10 MEQ TAB PO ONE (07:47)
[2018-03-06] MEDS ORDERED: POTASSIUM CL 20 MEQ/15 ML UDCUP PO ONE (09:45)
--- NOTE | 2018-03-06 12:35 | ASMTCMCOM ---
CM Note CM Note Notes: Pts case discussed in tx rounds. PT is recommending HC/possibly SNF. OT is recommending SNF. CM met w/ pt for dispo planning. Pt does not want SNF. Pt is agreeable to HC. Pt has chosen [facility] since they take her insurance. [facility] is able to accept. CM confirmed pts address and phone number. Pts PCP is Dr. Anderson. CM to follow. Plan: [facility]; PT, OT Date Signed: 03/06/2018 12:34 PM Electronically Signed By:JAMES Carrera
--- NOTE | 2018-03-06 15:23 | SOAPPROG ---
[facility] Progress Note Assessment/Plan: Assessment: Plan: 03/06/18 15:21 A/P 1. Ulcerative colitis- on 5-ASA and IV steroids. Improving. Continue. Will consider decreasing IV steroids dose today. Continue for a total of 72 hours. 2. Muscle weakness- hypokalemia versus steroid induced myopathy. Subjective: cc: Follow up UC Feeling better. 30% more energy. 4 BMs/24 hours. One bloody. Objective: Vital Signs Temp Pulse Resp BP Pulse Ox 36.5 C 69 16 107/67 92 03/06/18 12:00 03/06/18 12:00 03/06/18 12:00 03/06/18 12:00 03/06/18 12:00 Laboratory Results 03/05/18 22:04 03/06/18 04:08 03/05/18 03/06/18 03/07/18 05:59 05:59 05:59 Intake Total 550 Output Total 100 Balance 450 Physical Exam - Physical Exam General Appearance: alert, no apparent distress Respiratory: lungs clear, normal breath sounds Cardiac/Chest: regular rate, rhythm, No diastolic murmur, No systolic murmur Abdomen: non-tender, soft, distended (minimal) Skin: normal color, warm/dry Neuro/Psych: no motor/sensory deficits, alert, normal mood/affect, oriented x 3 , No abnormal second hand II-XII ICD10 Worksheet Patient Problems: Problems Problem Status Onset Colitis Acute Dehydration Acute Hypokalemia Acute
[2018-03-06] MEDS: POTASSIUM Cl (KCl) 40 MEQ in NS 1,000 ML IV SCH (16:01)
--- NOTE | 2018-03-06 18:40 | HOSPPROG ---
Hospitalist Progress Note Assessment/Plan: Assessment: 73 yo F p/w acute ulcerative colitis flare and acute weakness 2/2 severe hypokalemia Plan: 1. Acute ulcerative colitis flare. Evidenced by abdominal discomfort, nausea, frequent watery bowel movements, CRP 193 -appreciate Gastroenterology consultation, recommend ongoing scheduled IV steroids x 72hrs and monitor bowel output -Hgb stable 11.9 -ongoing IV fluids for GI losses, reduced to 50/hr today -supportive care with antiemetics and pain medications, including antispasmodics 2. Paresis. Acute, unclear whether this is steroid induced myopathy versus severe hypokalemia -repleted hypokalemia aggressively and gauge whether strength significantly improved -if this is steroid induced myopathy, this will be complicated by the fact the patient requires ongoing steroids to control or ulcerative colitis -engage with physical and occupational therapy determine discharge needs 3. Hyponatremia. Acute, repleting 4. Metabolic alkalosis. Secondary to contraction from hypovolemia, continue fluids and repeat in a.m. Diet. Regular Prophylaxis. High risk, Lovenox for Code. Full Disposition. Anticipated discharge uncertain this time, ongoing IV steroids/ hematochezia. Objective: Vital Signs Temp Pulse Resp BP Pulse Ox 36.9 C 72 20 119/75 91 L 03/06/18 16:00 03/06/18 16:00 03/06/18 16:00 03/06/18 16:00 03/06/18 16:00 Laboratory Results 03/05/18 22:04 03/06/18 17:45 03/05/18 03/06/18 03/07/18 05:59 05:59 05:59 Intake Total 550 Output Total 100 Balance 450 ICD10 Worksheet Patient Problems: Problems Problem Status Onset Colitis Acute Dehydration Acute Hypokalemia Acute
[2018-03-06] MEDS ORDERED: NS W/ 20 KCl/L 1,000 ML IV SCH (18:45)
[2018-03-06] MEDS: ATORVASTATIN CALCIUM 10 MG TAB PO SCH (21:04)
[2018-03-07] MEDS: methylPREDNISolone SOD SUCC 40 MG/ML VIAL IVP SCH ×2 (00:56→04:53)
[2018-03-07] MEDS: ONDANSETRON DISINTEGRATING 4 MG TAB PO PRN ×4 (00:56→18:01)
[2018-03-07] MEDS ORDERED: methylPREDNISolone SOD SUCC 40 MG/ML VIAL IVP SCH (08:51)
[2018-03-07] MEDS ORDERED: methylPREDNISolone SOD SUCC 125 MG/2 ML VIAL IVP SCH (09:00)
[2018-03-07] MEDS: METOPROLOL TARTRATE 25 MG TAB PO SCH ×2 (09:07→20:21)
[2018-03-07] MEDS: MESALAMINE 0.375 GM PO SCH ×4 (09:07→20:27)
--- NOTE | 2018-03-07 09:29 | SOAPPROG ---
[facility] Progress Note Assessment/Plan: Assessment: Plan: 03/06/18 15:21 A/P 1. Ulcerative colitis- on 5-ASA and IV steroids. Improving. Continue. Will consider decreasing IV steroids dose today. Continue for a total of 72 hours. 2. Muscle weakness- hypokalemia versus steroid induced myopathy. 03/07/18 09:24 A/P 1. Ulcerative colitis- on 5-ASA and IV steroids. Will decrease solumedrol to 60 Q12 (needs 72 hours of steroids). Consider transitioning to oral steroids tomorrow. Suspect weakness secondary to hypokalemia? (vs steroid myopathy). Dr. Sanchez is taking over the service starting at 5pm. Will CRP,ESR. Continue current care. 03/07/18 09:29 Subjective: cc: Follow up ulcerative colitis Feeling better. Had 2 bloody BMs last night. Objective: Vital Signs Temp Pulse Resp BP Pulse Ox 36.8 C 66 18 111/57 L 93 03/07/18 08:50 03/07/18 09:07 03/07/18 08:50 03/07/18 09:07 03/07/18 08:50 Laboratory Results 03/07/18 03:57 03/07/18 03:57 03/06/18 03/07/18 03/08/18 05:59 05:59 05:59 Intake Total 550 300 Output Total 100 Balance 450 300 Physical Exam - Physical Exam General Appearance: alert, no apparent distress EENT: No scleral icterus (R), No scleral icterus (L) Respiratory: lungs clear, normal breath sounds, No crackles, No rales, No rhonchi Cardiac/Chest: regular rate, rhythm Abdomen: non-tender, soft, No distended, No guarding, No rebound Skin: normal color, warm/dry, No jaundice Extremities: normal inspection Neuro/Psych: normal mood/affect, oriented x 3, No abnormal tip tester II-XII ICD10 Worksheet Patient Problems: Problems Problem Status Onset Colitis Acute Dehydration Acute Hypokalemia Acute
[2018-03-07] MEDS: methylPREDNISolone SOD SUCC 125 MG/2 ML VIAL IVP SCH ×2 (10:07→20:22)
[2018-03-07] MEDS: DICYCLOMINE 20 MG TAB PO PRN ×2 (14:12→18:53)
--- NOTE | 2018-03-07 16:56 | ASMTCMCOM ---
CM Note CM Note Notes: 03/07/2018 Case Management Note Discussed pt during rounds. IV steroids continue. Returned after rounds and met w/pt, who is wheelchair bound and stepson. Provided Meals on Wheels info to . Pt in agreement SNF rehab may be the appropriate d/c. Faxed referral [facility] in [place]. [facility] will accept pt if IV steroids are discontinued prior to d/c. WIll need to confirm on day of d/c that [facility] is taking the pt. Case Management d/c poc: pending acceptance [facility] vs [facility] Case Management to follow. Date Signed: 03/07/2018 04:52 PM Electronically Signed By:Blanca Renner RN
[2018-03-07] MEDS: ATORVASTATIN CALCIUM 10 MG TAB PO SCH (20:20)
--- NOTE | 2018-03-07 20:45 | HOSPPROG ---
Hospitalist Progress Note Assessment/Plan: Assessment: 73 yo F p/w acute ulcerative colitis flare and acute weakness 2/2 severe hypokalemia Plan: 1. Acute ulcerative colitis flare. Evidenced by abdominal discomfort, nausea, frequent watery bowel movements, CRP 193 -appreciate Gastroenterology consultation, recommend adjusting methylpred to 60 q12 IV w/ po transition tomorrow -Hgb stable 11 despite increase in bloody BMs today -supportive care with antiemetics and pain medications, including antispasmodics 2. Paresis. Acute, unclear whether this is steroid induced myopathy versus severe hypokalemia, NSR on tele (personally interpreted) -improving s/p repletion of K, patient considering home dispo 3. Hyponatremia. Acute, repleting 4. Metabolic alkalosis. Secondary to contraction from hypovolemia, continue fluids and repeat in a.m. Diet. Regular Prophylaxis. High risk, SCDs, hold pharm given bloody BMs Code. Full Disposition. Anticipated discharge 03/08 vs. 03/09 depending on bowel output; remains clinically unresolved w/ worsening bloody BMs today. Subjective: patient reports increase in bloody BMs today Objective: Vital Signs Temp Pulse Resp BP Pulse Ox 36.6 C 75 22 H 119/71 96 03/07/18 16:00 03/07/18 20:21 03/07/18 16:00 03/07/18 20:21 03/07/18 16:00 Laboratory Results 03/07/18 09:28 03/07/18 03:57 03/06/18 03/07/18 03/08/18 05:59 05:59 05:59 Intake Total 550 300 640 Output Total 100 Balance 450 300 640 - Physical Exam Constitutional: no apparent distress, appears nourished, not in pain, uncomfortable Cardiovascular: regular rate and rhythym, no murmur, rub, or gallop, edema Respiratory: no respiratory distress, no rales or rhonchi, clear to auscultation Gastrointestinal: normoactive bowel sounds, soft, non-tender abdomen, no palpable masses, distension Neurologic: AAOx3, sensation intact bilaterally, weakness (motor 5/5 bilat LE) Psychiatric: interacting appropriately, not anxious, not encephalopathic, thought process linear ICD10 Worksheet Patient Problems: Problems Problem Status Onset Colitis Acute Dehydration Acute Hypokalemia Acute
[2018-03-08] MEDS: ONDANSETRON DISINTEGRATING 4 MG TAB PO PRN ×4 (02:01→17:48)
[2018-03-08] MEDS: DICYCLOMINE 20 MG TAB PO PRN ×4 (02:03→20:31)
[2018-03-08] MEDS: METOPROLOL TARTRATE 25 MG TAB PO SCH ×2 (09:29→20:31)
[2018-03-08] MEDS: MESALAMINE 0.375 GM PO SCH ×3 (09:29→16:20)
--- NOTE | 2018-03-08 09:40 | SOAPPROG ---
SOAP Progress Note Assessment/Plan: Assessment: 1. DONNA with flare; improved on IV steroids and 5-ASA. 2. Diarrhea; improved. 3. Hypokalemia; corrected. 4. Muscle weakness likely secondary to hypokalemia; improved. Plan: 1. Solumedrol D/Farhat. 2. Prednisone 30 mg PO Q12. 3. FILIPE. 4. Hopefully can D/C to home in 24-48 hours with close F/U with our office as an outpatient. Fernie Sanchez MD 03/08/18 09:37 Subjective: CC: DONNA with flare. Interval HPI: Patient feeling better today with less weakness. Formed soft BM last night. Small volume BM this am without urgency or blood. Objective: Vital Signs Temp Pulse Resp BP Pulse Ox 36.6 C 75 14 132/69 H 92 03/08/18 07:41 03/08/18 09:29 03/08/18 07:41 03/08/18 07:41 03/08/18 07:41 Laboratory Results 03/08/18 03:57 03/08/18 03:57 03/07/18 03/08/18 03/09/18 05:59 05:59 05:59 Intake Total 300 1240 Balance 300 1240 Physical Exam - Physical Exam General Appearance: WD/WN, alert, no apparent distress Respiratory: lungs clear, normal breath sounds Cardiac/Chest: regular rate, rhythm Abdomen: normal bowel sounds, non-tender, soft Skin: normal color, warm/dry Neuro/Psych: alert, normal mood/affect, oriented x 3 ICD10 Worksheet Patient Problems: Problems Problem Status Onset Colitis Acute Dehydration Acute Hypokalemia Acute
[2018-03-08] MEDS: predniSONE 20 MG TAB PO SCH ×2 (10:23→17:44)
[2018-03-08] MEDS: methylPREDNISolone SOD SUCC 125 MG/2 ML VIAL IVP SCH (11:23)
[2018-03-08] MEDS ORDERED: POTASSIUM CL 20 MEQ TAB PO ONE (11:53)
--- NOTE | 2018-03-08 13:26 | HOSPPROG ---
Hospitalist Progress Note Assessment/Plan: Assessment: 73 yo F p/w acute ulcerative colitis flare and acute weakness 2/2 severe hypokalemia Plan: 1. Acute ulcerative colitis flare. Evidenced by abdominal discomfort, nausea, frequent watery bowel movements, CRP 193 -d/w Dr. Sanchez, he recommends adjusting to pred 30 bid this AM and monitor effect x 24hrs prior to DC -Hgb stable 10.8, loose, non-bloody BMs today -supportive care with antiemetics and pain medications, including antispasmodics 2. Paresis. Acute, unclear whether this is steroid induced myopathy versus severe hypokalemia -improving s/p repletion of K, patient amenable to SNF rehab if recommended by PT/OT 3. Hyponatremia. Acute, repleting 4. Metabolic alkalosis. Secondary to contraction from hypovolemia 5. Tachy/cesar syndrome. E/o intermittent, self-limited Afib RVR on tele, continue monitoring, but no interventions have been needed Diet. Regular Prophylaxis. High risk, SCDs, hold pharm given bloody BMs Code. Full Disposition. Anticipated discharge 03/09 depending on bowel output; remains clinically unresolved w/ worsening bloody BMs today. Subjective: non-bloody stools today Objective: Vital Signs Temp Pulse Resp BP Pulse Ox 36.6 C 49 L 15 96/67 L 92 03/08/18 11:38 03/08/18 11:38 03/08/18 11:38 03/08/18 11:38 03/08/18 11:38 Laboratory Results 03/08/18 03:57 03/08/18 03:57 03/07/18 03/08/18 03/09/18 05:59 05:59 05:59 Intake Total 300 1240 Balance 300 1240 - Physical Exam Constitutional: no apparent distress, appears nourished, not in pain, No uncomfortable Cardiovascular: systolic murmur (I/ at apex), irregularly irregular ( intermittently), No tachycardia, No edema Respiratory: no respiratory distress, no rales or rhonchi, clear to auscultation Gastrointestinal: normoactive bowel sounds, soft, non-tender abdomen, no palpable masses Neurologic: AAOx3, sensation intact bilaterally Psychiatric: interacting appropriately, not anxious, not encephalopathic, thought process linear ICD10 Worksheet Patient Problems: Problems Problem Status Onset Colitis Acute Dehydration Acute Hypokalemia Acute
[2018-03-08] MEDS ORDERED: POTASSIUM CL 20 MEQ/15 ML UDCUP PO ONE ×2 (13:45→16:00)
--- NOTE | 2018-03-08 15:47 | ASMTCMCOM ---
CM Note CM Note Notes: Pt has been placed on oral steroids. She was ambivelent about going to SNF rehab vs home PT/OT. The OT recommended SNF, PT recommended homecare, but went on to say SNF may be needed. The pt's is concerned that she will fall if she comes home and would prefer that she go to rehab. As of today the Pt is stating that she would choose to go to rehab and continues to want [facility]. [facility] told pt is now on oral steroids. CM to follow. D/C Plan: Anticipate [facility]. Date Signed: 03/08/2018 03:47 PM Electronically Signed By:Lori Fried
[2018-03-08] MEDS: ATORVASTATIN CALCIUM 10 MG TAB PO SCH (20:26)
[2018-03-09] MEDS: ONDANSETRON DISINTEGRATING 4 MG TAB PO PRN ×5 (04:25→20:54)
[2018-03-09] MEDS: DICYCLOMINE 20 MG TAB PO PRN ×4 (04:25→20:54)
[2018-03-09] MEDS: MESALAMINE 0.375 GM PO SCH ×5 (04:27→20:57)
[2018-03-09] MEDS: predniSONE 20 MG TAB PO SCH ×2 (08:59→17:03)
[2018-03-09] MEDS: METOPROLOL TARTRATE 25 MG TAB PO SCH ×2 (09:00→20:54)
--- NOTE | 2018-03-09 09:24 | SOAPPROG ---
SOAP Progress Note Assessment/Plan: Assessment: 1. DONNA with flare; 3 small BM in last 24 hours, one with blood. 2. Muscle weakness likely secondary to hypokalemia; improved. Plan: 1. Continue Prednisone 30 mg PO Q12. 2. FILIPE. 3. Hopefully can D/C to rehab in 24-48 hours with close F/U with out practice. Fernie Sanchez MD 03/09/18 09:22 Subjective: CC: DONNA with flare. Interval HPI: Patient had 3 small BM in last 24 hours, first with cramping and some blood, last 2 without cramping or blood. No significant change in weakness. Patient has decided to go to Rehab center in [place] at discharge. Objective: Vital Signs Temp Pulse Resp BP Pulse Ox 36.6 C 53 L 19 132/71 H 96 03/09/18 07:12 03/09/18 07:12 03/09/18 07:12 03/09/18 07:12 03/09/18 07:12 Laboratory Results 03/09/18 04:02 03/09/18 04:02 03/08/18 03/09/18 03/10/18 05:59 05:59 05:59 Intake Total 1240 250 Output Total 200 Balance 1240 50 Physical Exam - Physical Exam General Appearance: alert, no apparent distress Respiratory: lungs clear, normal breath sounds Cardiac/Chest: regular rate, rhythm Abdomen: normal bowel sounds, non-tender, soft Skin: normal color, warm/dry Neuro/Psych: alert, normal mood/affect, oriented x 3 ICD10 Worksheet Patient Problems: Problems Problem Status Onset Colitis Acute Dehydration Acute Hypokalemia Acute
--- NOTE | 2018-03-09 19:00 | HOSPPROG ---
Hospitalist Progress Note Assessment/Plan: Assessment: 73 yo F p/w acute ulcerative colitis flare and acute weakness 2/2 severe hypokalemia Plan: 1. Acute ulcerative colitis flare. Evidenced by abdominal discomfort, nausea, frequent watery bowel movements, CRP 193 -d/w Dr. Sanchez, he recommends continuing pred 30 bid and monitor effect x 24hrs prior to DC given ongoing loose BMs -Hgb stable 10.7 -supportive care with antiemetics and pain medications, including antispasmodics 2. Paresis. Acute, unclear whether this is steroid induced myopathy versus severe hypokalemia -improving s/p repletion of K -patient amenable to SNF rehab if recommended by PT/OT, she is currently debating SNF vs. C 3. Hyponatremia. Acute, repleted 4. Metabolic alkalosis. Secondary to contraction from hypovolemia 5. Tachy/cesar syndrome. E/o intermittent, self-limited Afib RVR on tele, continue monitoring, but no interventions have been needed Diet. Regular Prophylaxis. High risk, SCDs, hold pharm given bloody BMs Code. Full Disposition. Anticipated discharge 03/10 depending on bowel output; remains clinically unresolved w/ ongoing loose BMs today. Subjective: loose BMs, no blood, patient torn whether or not to go to SNF Objective: Vital Signs Temp Pulse Resp BP Pulse Ox 36.8 C 54 L 19 102/71 94 03/09/18 16:00 03/09/18 16:00 03/09/18 16:00 03/09/18 16:00 03/09/18 16:00 Laboratory Results 03/09/18 04:02 03/09/18 04:02 03/08/18 03/09/18 03/10/18 05:59 05:59 05:59 Intake Total 1240 250 470 Output Total 200 Balance 1240 50 470 - Pending Discharge Pending Discharge Within 24 Hours: Yes Pending Discharge Date: 03/10/18 Pending Discharge Time: 11:00 - Physical Exam Constitutional: no apparent distress, appears nourished, not in pain, No uncomfortable Cardiovascular: regular rate and rhythym, no murmur, rub, or gallop, other ( occasional ectopic beats) Respiratory: no respiratory distress, no rales or rhonchi, clear to auscultation Gastrointestinal: normoactive bowel sounds, soft, non-tender abdomen, No distension Neurologic: AAOx3, No weakness (motor 5/5 bilat LE) Psychiatric: interacting appropriately, not anxious, not encephalopathic, thought process linear ICD10 Worksheet Patient Problems: Problems Problem Status Onset Colitis Acute Dehydration Acute Hypokalemia Acute
[2018-03-09] MEDS: ATORVASTATIN CALCIUM 10 MG TAB PO SCH (20:55)
--- NOTE | 2018-03-10 08:40 | PDIAF ---
- Diagnosis Diagnosis: ulcerative colitis flare Code Status: Full Code - Medication Management Discharge Medications: Medications to Continue on Transfer Atorvastatin Calcium [Lipitor 10 mg (*)] 5 mg PO HS 03/04/18 [Last Taken ] Mesalamine [Apriso 0.375 gm] 0.375 gm PO 08,12,16,20 03/04/18 [Last Taken 08:00] Metoprolol Tartrate [Lopressor 25 mg (*)] 25 mg PO BID 03/04/18 [Last Taken 07/21 09:00] Ondansetron Odt [Zofran Odt 4 mg (*)] 4 mg PO Q4 PRN 03/04/18 [Last Taken 12:00] Acetaminophen [Tylenol 325mg (*)] 650 mg PO Q4 PRN tab 03/10/18 [Last Taken Unknown] Dicyclomine [Bentyl 20 MG (*)] 20 mg PO QID PRN #120 tab 03/10/18 [Last Taken Unknown] Ondansetron Odt [Zofran Odt 4 mg (*)] 4 mg PO Q6H PRN #30 tab 03/10/18 [Last Taken Unknown] Pantoprazole Sodium [Protonix 40mg (*)] 40 mg PO DAILY #30 tab 03/10/18 [Last Taken Unknown] predniSONE 30 mg PO BIDMEAL #60 tablet 03/10/18 [Last Taken Unknown] Discharge Medications: Refer to the Discharge Home Medication list for PRN reason. PICC Care - Routine: N/A - Orders Services needed: Registered Nurse, Physical Therapy, Occupational Therapy Isolation Type: None Diet Recommendation: no restrictions on diet Additional Instructions: Continue the Predisone 30 mg twice daily until you see GI in 10-14 days. Follow up with GI of the [facility] in 10-14 days.\ Recheck labs in 2 days to ensure electrolytes and hemoglobin are stable. - Labs/Radiology BMP Date: 03/12/18 (results to kenroy CURRAN) CBC w/diff Date: 03/12/18 (results to kenroy CURRAN) - Follow Up Care Current Providers and Referrals: Shanta Anderson MD [Primary Care Provider] - As per Instructions Fernie Sanchez MD [Medical Doctor] -
[2018-03-10] MEDS: MESALAMINE 0.375 GM PO SCH ×4 (09:14→21:15)
[2018-03-10] MEDS: predniSONE 20 MG TAB PO SCH ×2 (09:14→17:27)
[2018-03-10] MEDS: METOPROLOL TARTRATE 25 MG TAB PO SCH ×2 (09:14→21:14)
[2018-03-10] MEDS: ONDANSETRON DISINTEGRATING 4 MG TAB PO PRN ×3 (09:17→17:37)
[2018-03-10] MEDS: DICYCLOMINE 20 MG TAB PO PRN ×2 (09:17→17:37)
--- NOTE | 2018-03-10 16:37 | HOSPPROG ---
Hospitalist Progress Note Assessment/Plan: Assessment: 73 yo F p/w acute ulcerative colitis flare and acute weakness 2/2 severe hypokalemia Plan: 1. Acute ulcerative colitis flare. Some improvement, but slow. -Hgb stable 10.7 -supportive care with antiemetics and pain medications, including antispasmodics -cont prednisone 30 mg bid until f/u with GI in 10-14 days, then can decide on taper. Discussed with Dr. Sanchez 2. Weakness. improving s/p repletion of K -patient amenable to SNF rehab if recommended by PT/OT, she is currently debating SNF vs. [facility] 3. Hyponatremia. Acute, repleted 4. Metabolic alkalosis. Secondary to contraction from hypovolemia 5. Tachy/cesar syndrome. E/o intermittent, self-limited Afib RVR on tele, continue monitoring, but no interventions have been needed. No AC with bloody stools. Diet. Regular Prophylaxis. High risk, SCDs, hold pharm given bloody BMs Code. Full Disposition. Anticipated discharge 03/11, likely to SNF if approved Subjective: Pt feels a little better. Still weak, but no abdominal pain and less frequent diarrhea. Did a have a little blood in stool this am. No fevers/ chills. No CP or SOB Objective: Vital Signs Temp Pulse Resp BP Pulse Ox 36.6 C 58 L 20 116/62 94 03/10/18 15:07 03/10/18 15:07 03/10/18 15:07 03/10/18 15:07 03/10/18 15:07 Laboratory Results 03/09/18 04:02 03/09/18 04:02 03/09/18 03/10/18 03/11/18 05:59 05:59 05:59 Intake Total 250 770 Output Total 200 Balance 50 770 - Physical Exam Constitutional: no apparent distress Eyes: PERRL Ears, Nose, Mouth, Throat: moist mucous membranes Cardiovascular: regular rate and rhythym Respiratory: no respiratory distress Gastrointestinal: normoactive bowel sounds, soft, non-tender abdomen Skin: warm Musculoskeletal: generalized weakness Neurologic: AAOx3 Psychiatric: interacting appropriately ICD10 Worksheet Patient Problems: Problems Problem Status Onset Colitis Acute Dehydration Acute Hypokalemia Acute
--- NOTE | 2018-03-10 16:41 | ASMTCMCOM ---
CM Note CM Note Notes: Pt accepted by [facility] SNF and ready to discharge today, however, [facility] had not heard back from [facility] for authorization. Discharge delayed pending authorizaton. D/C Plan: [facility] Date Signed: 03/10/2018 04:40 PM Electronically Signed By:Danielle Campuzano
--- NOTE | 2018-03-10 19:04 | GDS ---
DISCHARGE DIAGNOSES: 1. Ulcerative colitis with acute exacerbation. 2. Bloody diarrhea, secondary to above, improved. 3. Weakness. 4. Hyponatremia, resolved. 5. Atrial fibrillation with rapid ventricular response, which was brief and episodic on telemetry. CONSULTANTS: Dr. Mayo Romero of Gastroenterology. HISTORY: For details, please see history and physical dated March 04, 2018. 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 She was treated with IV steroids and discharged on oral steroids; however, during her taper from 40 mg down to 25 mg, she mckinley d recurrence of diarrhea and has had persistent bloody stools. She was admitted for further managemen t. HOSPITAL COURSE: Patient was admitted to the hospital and her immunotherapy was held. She was treate d with IV Solu-Medrol and transitioned to oral prednisone 30 mg twice daily. A GI pathogen panel was negative for infectious etiology. 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 She has not previously undergone colonoscopy. She has had significant weakness, which may be secondary to steroid myopathy versus deconditioning in the setting of chronic diarrhea. Overall, her symptoms have improved. She has less frequent diarrhea and fewer bloody stools. She also has no more pain and she feels like she is getting stronger, albeit quite slowly. DISPOSITION: Patient is discharged to [facility]dc facility for ongoing conditioning and strength ening in stable condition. DISCHARGE MEDICATIONS: Please see [facility] for completed outpatient medication list. New medications on discharge, include: 1. Prednisone 30 mg p.o. b.i.d. #60 no refills. She should continue this dose for 10-14 days until f ollowup with Gastroenterology. 2. Protonix 40 mg p.o. daily #30 no refills. 3. Zofran 4 mg p.o. q.6 hours p.r.n. #30, no refills. 4. Bentyl 20 mg p.o. four times daily p.r.n. #120, no refills. 5. Tylenol 650 mg p.o. q.4 hours p.r.n. She will continue all other outpatient medications as previously prescribed. FOLLOWUP: 1. Dr. Fernie Sanchez, [facility] in 10-14 days. At this point, decision about tapering the dose of her prednisone will be made and she is to take the 30 mg twice daily until that time. 2. Dr. Shanta Anderson, primary care. 3. We will recheck a CBC and basic metabolic panel at the [facility]dc facility in 2 days after d ischarge to ensure no electrolyte abnormalities or drop in hemoglobin. /[id number]/MODL
[2018-03-10] MEDS: ATORVASTATIN CALCIUM 10 MG TAB PO SCH (21:13)
[2018-03-11] MEDS ORDERED: POTASSIUM CL 20 MEQ/15 ML UDCUP PO ONE ×2 (08:36→08:59)
--- NOTE | 2018-03-11 09:01 | PDIAF ---
- Diagnosis Diagnosis: ulcerative colitis flare Code Status: Full Code - Medication Management Discharge Medications: Medications to Continue on Transfer Atorvastatin Calcium [Lipitor 10 mg (*)] 5 mg PO HS 03/04/18 [Last Taken ] Mesalamine [Apriso 0.375 gm] 0.375 gm PO 08,12,16,20 03/04/18 [Last Taken 08:00] Metoprolol Tartrate [Lopressor 25 mg (*)] 25 mg PO BID 03/04/18 [Last Taken 07/21 09:00] Ondansetron Odt [Zofran Odt 4 mg (*)] 4 mg PO Q4 PRN 03/04/18 [Last Taken 12:00] Acetaminophen [Tylenol 325mg (*)] 650 mg PO Q4 PRN tab 03/10/18 [Last Taken Unknown] Dicyclomine [Bentyl 20 MG (*)] 20 mg PO QID PRN #120 tab 03/10/18 [Last Taken Unknown] Ondansetron Odt [Zofran Odt 4 mg (*)] 4 mg PO Q6H PRN #30 tab 03/10/18 [Last Taken Unknown] Pantoprazole Sodium [Protonix 40mg (*)] 40 mg PO DAILY #30 tab 03/10/18 [Last Taken Unknown] predniSONE 30 mg PO BIDMEAL #60 tablet 03/10/18 [Last Taken Unknown] Potassium Chloride Po [Potassium Chloride 20 mg/15 ml (*)] 20 meq PO DAILY #450 ml 03/11/18 [Last Taken Unknown] Discharge Medications: Refer to the Discharge Home Medication list for PRN reason. PICC Care - Routine: N/A - Orders Services needed: Registered Nurse, Physical Therapy, Occupational Therapy Isolation Type: None Diet Recommendation: no restrictions on diet Additional Instructions: Continue the Predisone 30 mg twice daily until you see GI in 10-14 days. Follow up with GI of the [facility] in 10-14 days.\ Recheck labs in 2 days to ensure electrolytes and hemoglobin are stable. - Labs/Radiology BMP Date: 03/12/18 (results to kenroy CURRAN) CBC w/diff Date: 03/12/18 (results to kenroy CURRAN) - Follow Up Care Current Providers and Referrals: Shanta Anderson MD [Primary Care Provider] - As per Instructions Fernie Sanchez MD [Medical Doctor] -
--- NOTE | 2018-03-11 09:01 | PDIAF ---
- Diagnosis Diagnosis: ulcerative colitis flare Code Status: Full Code - Medication Management Discharge Medications: Medications to Continue on Transfer Atorvastatin Calcium [Lipitor 10 mg (*)] 5 mg PO HS 03/04/18 [Last Taken ] Mesalamine [Apriso 0.375 gm] 0.375 gm PO 08,12,16,20 03/04/18 [Last Taken 08:00] Metoprolol Tartrate [Lopressor 25 mg (*)] 25 mg PO BID 03/04/18 [Last Taken 07/21 09:00] Ondansetron Odt [Zofran Odt 4 mg (*)] 4 mg PO Q4 PRN 03/04/18 [Last Taken 12:00] Acetaminophen [Tylenol 325mg (*)] 650 mg PO Q4 PRN tab 03/10/18 [Last Taken Unknown] Dicyclomine [Bentyl 20 MG (*)] 20 mg PO QID PRN #120 tab 03/10/18 [Last Taken Unknown] Ondansetron Odt [Zofran Odt 4 mg (*)] 4 mg PO Q6H PRN #30 tab 03/10/18 [Last Taken Unknown] Pantoprazole Sodium [Protonix 40mg (*)] 40 mg PO DAILY #30 tab 03/10/18 [Last Taken Unknown] predniSONE 30 mg PO BIDMEAL #60 tablet 03/10/18 [Last Taken Unknown] Potassium Chloride Po [Potassium Chloride 20 mg/15 ml (*)] 20 meq PO DAILY #450 ml 03/11/18 [Last Taken Unknown] Discharge Medications: Refer to the Discharge Home Medication list for PRN reason. PICC Care - Routine: N/A - Orders Services needed: Registered Nurse, Physical Therapy, Occupational Therapy Isolation Type: None Diet Recommendation: no restrictions on diet Additional Instructions: Continue the Predisone 30 mg twice daily until you see GI in 10-14 days. Follow up with GI of the [facility] in 10-14 days.\ Recheck labs in 2 days to ensure electrolytes and hemoglobin are stable. - Labs/Radiology BMP Date: 03/13/18 (results to kenroy CURRAN) CBC w/diff Date: 03/13/18 (results to kenroy CURRAN) - Follow Up Care Current Providers and Referrals: Shanta Anderson MD [Primary Care Provider] - As per Instructions eFrnie Sanchez MD [Medical Doctor] -
[2018-03-11] MEDS: MESALAMINE 0.375 GM PO SCH ×2 (09:28→13:27)
[2018-03-11] MEDS: predniSONE 20 MG TAB PO SCH (09:29)
[2018-03-11] MEDS: ONDANSETRON DISINTEGRATING 4 MG TAB PO PRN ×2 (09:30→15:31)
[2018-03-11] MEDS: METOPROLOL TARTRATE 25 MG TAB PO SCH (09:30)
[2018-03-11] MEDS: DICYCLOMINE 20 MG TAB PO PRN ×2 (09:32→15:31)
[2018-03-11 11:57] VITALS: BP 128/92
--- NOTE | 2018-03-11 16:51 | PDDCSUM ---
Discharge Summary Discharge Summary: Please see complete discharge summary dated 03/11/2018. Her discharge was delayed due to awaiting insurance approval of SNF, which was approved today. She was noted to have low potassium level this morning of 3 and potassium supplement is added to her discharge medications. Otherwise, there are no other changes to the plan and she will follow up with GI of the [facility] in 10- 14 days.
--- NOTE | 2018-03-11 17:10 | ASMTDCNOTE ---
Case Management Discharge Discharge Order Complete? Answers: Yes Patient to Obtain Answers: Other Notes: SNF Medications Transportation Arranged Answers: [facility] W/[facility] Transport will Pick (Date 03/11/2018 04:00 PM & Time) Faxed Final Orders Answers: Yes Agency/Facility Transfer Answers: Yes Report Printed & Faxed to Receiving Agency Family Notified Answers: Yes Notes: pt called Discharge Comments Notes: Pt to discharge as planned to [facility] [place] which was her first choice. Pt to be picked up around 1600. RN and pt notified of transportation time. RN to call report to [facility]. No further CM needs noted at this time. Date Signed: 03/11/2018 05:09 PM Electronically Signed By:Danielle Campuzano
--- NOTE | 2018-03-11 17:11 | ASDISCHSUM ---
Discharge Information Plan Status:SNF Medically Cleared to Leave:03/11/2018 Discharge Date:03/11/2018 03:58 PM CM D/C Disposition:[facility] ADT D/C Disposition:[facility] Projected Discharge Date:03/10/2018 11:00 AM Transportation at D/C:ALS/BLS Discharge Delay Reason: Follow-Up Date:03/10/2018 11:00 AM Discharge Slot: Final Diagnosis:ulcerative colitis flare Placement Information Referral Type:*Home Health Care Services Referral ID:[id number] Provider Name: Address 1: Phone Number: Address 2: Fax Number: City: Selection Factors: State: Referral Type:*[place]/SNF Referral ID:[id number] Provider Name:[facility] [place] Address 1:[address] [facility] Address 2: City:[place] Selection Factors: State:[place] Patient Contact Information Contact Name:ISAIAS Relationship: Address:[address] [place] [address] City:[place] Alternate Phone: State/Zip Code:[place] [address] Email: Financial Information Financial Class:Medicare Advantage Plans Primary Plan Desc:[employer] [facility] [email or web address] Primary Plan Number:[id number] Secondary Plan Desc: Secondary Plan Number: Assessment Information [facility] CM Progress Note CM Note CM Note Notes: Pts case discussed in tx rounds. Pt is a 73 y/o female admitted for hypokalemia and dehydration. Therapies have been ordered and awaiting recommendations. Needs are TBD at this time. CM to follow. Plan: TBD Date Signed: 03/05/2018 12:02 PM Electronically Signed By:JAMES Carrera [facility] CM Progress Note CM Note CM Note Notes: Pts case discussed in tx rounds. PT is recommending HC/possibly SNF. OT is recommending SNF. CM met w/ pt for dispo planning. Pt does not want SNF. Pt is agreeable to HC. Pt has chosen [facility] since they take her insurance. [facility] is able to accept. CM confirmed pts address and phone number. Pts PCP is Dr. Anderson. CM to follow. Plan: [facility]; PT, OT Date Signed: 03/06/2018 12:34 PM Electronically Signed By:JAMES Carrera [facility] MATE[facility] Progress Note CM Note CM Note Notes: 03/07/2018 Case Management Note Discussed pt during rounds. IV steroids continue. Returned after rounds and met w/pt, who is wheelchair bound and stepson. Provided Meals on Wheels info to . Pt in agreement SNF rehab may be the appropriate d/c. Faxed referral [facility] in [place]. [facility] will accept pt if IV steroids are discontinued prior to d/c. WIll need to confirm on day of d/c that [facility] is taking the pt. Case Management d/c poc: pending acceptance [facility] vs [facility] Case Management to follow. Date Signed: 03/07/2018 04:52 PM Electronically Signed By:Blanca Renner RN [facility] CM Progress Note CM Note CM Note Notes: Pt has been placed on oral steroids. She was ambivelent about going to SNF rehab vs home PT/OT. The OT recommended SNF, PT recommended homecare, but went on to say SNF may be needed. The pt's is concerned that she will fall if she comes home and would prefer that she go to rehab. As of today the Pt is stating that she would choose to go to rehab and continues to want [facility]. [facility] told pt is now on oral steroids. CM to follow. D/C Plan: Anticipate [facility]. Date Signed: 03/08/2018 03:47 PM Electronically Signed By:Lori Fried [facility] Progress Note CM Note CM Note Notes: Pt accepted by [facility] and ready to discharge today, however, [facility] had not heard back from [facility] for authorization. Discharge delayed pending authorizaton. D/C Plan: [facility] Date Signed: 03/10/2018 04:40 PM Electronically Signed By:Danielle Campuzano Case Management Discharge Plan Note Case Management Discharge Discharge Order Complete? Answers: Yes Patient to Obtain Answers: Other Notes: SNF Medications Transportation Arranged Answers: [facility] [place] [facility] will Pick (Date 03/11/2018 04:00 PM & Time) Faxed Final Orders Answers: Yes Agency/Facility Transfer Answers: Yes Report Printed & Faxed to Receiving Agency Family Notified Answers: Yes Notes: pt called Discharge Comments Notes: Pt to discharge as planned to [facility] which was her first choice. Pt to be picked up around 1600. RN and pt notified of transportation time. RN to call report to [facility]. No further CM needs noted at this time. Date Signed: 03/11/2018 05:09 PM Electronically Signed By:Danielle Campuzano Intervention Information Intervention Type:*IM-Signed Date of Service:03/10/2018 09:49 AM Patient Type:Inpatient Staff Member:Yolanda Gill Hours: Discipline: Severity: Comment:
== END 2018-03-11 15:58 | DRG 386 ==
LOC: F2W 17:51 → OBSVTOIN 03-05 15:16
PROVIDERS: ADMIT Internal Medicine; ATTEND Internal Medicine
DX: K51.811 Other ulcerative colitis with rectal bleeding (principal); E87.1 Hypo-osmolality and hyponatremia; T50.905A Adverse effect of unspecified drugs, medicaments and biological substances, initial encounter; I48.91 Unspecified atrial fibrillation; L40.9 Psoriasis, unspecified; I10 Essential (primary) hypertension; I49.5 Sick sinus syndrome
CPT/HCPCS: 96365; 97110-GP; 97116-GP; 97161-GP; 97166-GO; 97530-GP; 97535-GO; G0378; G8978-GP-CK; G8979-GP-CI; G8987-GO-CK; G8988-GO-CI; J2405; J2920; J2930; J3475; J3480; J7512